=== PATIENT | female | born 1975 | race Two or more races ===

== ENCOUNTER 2024-11-08 15:29 | Emergency (ER) | payer OTHER ==
[~2024-11-08] VITALS: Ht 170.2 cm; Wt 88.5 kg
[2024-11-08 15:59] VITALS: BP 126/69; O2SAT 96
[2024-11-08] MEDS ORDERED: TRIAMCINOLONE ACETONIDE 40 MG/ML VIAL IM ONE (16:30)
[2024-11-08] MEDS ORDERED: ORPHENADRINE CITRATE 30 MG/ML AMPUL IM ONE (16:30)
[2024-11-08] MEDS ORDERED: CYCLOBENZAPRINE10 MG PO (17:16)
== END 2024-11-08 18:36 | disposition home or self-care (01) ==
LOC: ER 17:29
DX: M62.838 Other muscle spasm (principal); Z88.0 Allergy status to penicillin; Z88.6 Allergy status to analgesic agent; Z91.013 Allergy to seafood; Z91.018 Allergy to other foods